=== PATIENT | female | born 1960 | race Two or more races ===

== ENCOUNTER 2025-01-25 12:06 | Observation (INO) | payer OTHER, SELFPAY ==
--- NOTE | 2025-01-25 12:29 | XR_ITS ---
Examination: CT abdomen with intravenous contrast CT pelvis with intravenous contrast 2-D coronal reconstructions 2-D sagittal reconstructions Date and time of exam:January 25, 2025 1632 hours INDICATIONS: Epigastric pain beginning 10 days ago CTDI: vol (mGy) 9.08 DLP: (mGycm) 516 Technique: Multiple axial sections of the abdomen and pelvis have been obtained. 64 slice high-resolution scanner used. 3 mm axial sections have been obtained, post intravenous injection of 60 cc [id number]-370 2-D sagittal, coronal reconstructions obtained. Low dose protocols were performed. One or more of the following dose reduction techniques were used; automated exposure control, adjustment of the mA and/or KV according to patient size, use of iterative reconstruction technique. Findings: No focal liver or splenic lesions No gallstones No pancreatic or adrenal mass No renal or ureteral calculi, no hydronephrosis Aorta normal size No bowel obstruction Normal appendix No diverticulitis Atrophic uterus No adnexal mass Moderate stool in the rectum Intact urinary bladder. Moderate osteopenia IMPRESSION: Please see the gallbladder sonogram report today No extrahepatic biliary tract dilatation No renal or ureteral calculi, no hydronephrosis Normal appendix No bowel obstruction or diverticulitis
--- NOTE | 2025-01-25 12:29 | EKG_ITS ---
[facility] Test Date: 2025-01-25 Pat Name: PERLA CHRISTIE Department: Room: - Gender: Female Global Account Director: : 1960 Requested By: Keisha Mcmahon Order Number: [id number] Reading MD: Keisha Mcmahon Measurements Intervals [place] Rate: 70 P: 64 RI: 184 QRS: 35 QRSD: 90 T: 40 QT: 377 QTc: 409 Interpretive Statements SINUS RHYTHM No previous ECG available for comparison /store/S0/[id number]/ecg/[id number].pdf
--- NOTE | 2025-01-25 12:29 | XR_ITS ---
Examination: Abdomen sonogram, Limited Date and time of exam: January 25, 2025 at 1237 hours INDICATIONS: Epigastric pain beginning 3 days ago Technique: Real-time mcdowell scale transabdominal sonographic images of the upper abdomen obtained. Findings: Cholelithiasis, negative for cholecystitis Common bile duct 0.5 cm Pancreatic head 3.0 cm Liver 15 cm fatty infiltration Normal hepatopedal portal venous flow Patent IVC IMPRESSION: Cholelithiasis, negative for cholecystitis Fatty liver
--- NOTE | 2025-01-25 12:31 | EDNOTE_ITS ---
<Statement entered by Adela Schultz MD - 01/26/25 17:32> As co-signing physician, I was present and available for consult prn. I concur with the plan and care as documented by the midlevel provider. ED Abdominal Pain RME/HPI General Chief Complaint: Abdominal Pain Stated complaint: ABD PAIN X 1 WK; SEEN AT [facility] TWICE Time seen by provider: 01/25/25 12:20 Arrival date/time: 01/25/25 12:06 RME / HPI RME / HPI narrative: 64-year-old female patient with significant history of hypertension hypercholesterolemia hypothyroidism, was sent to us by her GI specialist, Dr. Carter, for evaluation regarding abdominal pain. Patient is having abdominal pain, for the last 10 days, initially noted on the epigastric area now radiating to the left lower quadrant. Associated with nausea. Patient denies any fever v omiting or other complaints. Last bowel movement today. Patient was seen in [facility] emergency room 3 times already, and was told that it was just gastritis. Patient denies any fever denies any other complaints. No medications taken prior to arrival. Related Data Allergies Allergy/AdvReac Type Severity Reaction Status Date / Time No Known Allergies Allergy Verified 01/25/25 12:09 Review of Systems Review of Systems Narrative Review of Systems: Review of system reviewed and within normal limits except mentioned in HPI ED Exam Narrative Physical exam: VITAL SIGNS: Reviewed. GENERAL APPEARANCE: Alert and interactive, follows commands, no acute distress, HEAD AND FACE: Non-traumatic. ENT: PERRL, pink conjunctivitis, eyelid no trauma, Mucous membrane moist. NECK: Supple, nontender, no nuchal rigidity. CHEST: No tenderness, no crepitus, no paradoxical movement, no retractions. LUNGS: Clear, well ventilated, symmetric, no rales, no wheezing, no ronchi, no stridor, good breath sounds bilaterally. HEART: Regular rate, regular rhythm, no murmur, no gallops. ABDOMEN: Soft, positive bowel sounds, nondistended, no guarding, left lower quadrant tenderness, no rebound, no masses, RECTAL: Deferred. GENITAL: Deferred. NEUROLOGICAL: Gross motor function intact sensory function intact, Appropriate for age. MUSCULOSKELETAL: low back nontender, full range of motion. EXTREMITIES: Nontender, full range of motion. SKIN: Color pink, dry, no rash, no lacerations, no abrasions, no contusions. LYMPHATICS: Deferred. Course Quality Measures none Orders Category Date Time Status COVID-19 Screening Questionnaire NOW Care 01/25/25 17:[address] Screening NOW Care 01/25/25 12:30 Active Decision to Admit X1 Care 01/25/25 17:56 Active EKG (ED ONLY) *Do not use* NOW Care 01/25/25 12:29 Completed Consult to Gastroenterology Stat Cons 01/25/25 17:[address] abdomen pelvis w con Stat Exams 01/25/25 12:29 Completed EKG (ED Only) Stat Exams 01/25/25 12:29 Draft US gall bladder Stat Exams 01/25/25 12:29 Completed Bilirubin,Direct Stat Lab 01/25/25 12:52 Completed CBC Stat Lab 01/25/25 12:52 Completed Comprehensive Metabolic Panel Stat Lab 01/25/25 12:52 Completed Lipase Stat Lab 01/25/25 12:52 Completed Partial Thromboplastin Time Stat Lab 01/25/25 12:52 Completed Prothrombin Time with INR Stat Lab 01/25/25 12:52 Completed UA, C/S IF [Urinalysis, C/S if Indicated] Stat Lab 01/25/25 12:30 Ordered Vital Signs Vital signs: Vital Signs Temperature 98.5 F 01/25/25 12:59 Pulse Rate 70 01/25/25 12:59 Respiratory Rate 18 01/25/25 12:59 Blood Pressure 119/79 01/25/25 12:59 Pulse Oximetry (%) 99 01/25/25 12:59 Oxygen Delivery Method Room Air 01/25/25 12:59 Abdominal Pain MDM MDM Narrative MDM Narrative:: 64-year-old female patient with significant history of hypertension hypercholesterolemia hypothyroidism, was sent to us by her GI specialist, Dr. Carter, for evaluation regarding abdominal pain. Patient is having abdominal pain, for the last 10 days, initially noted on the epigastric area now radiating to the left lower quadrant. Associated with nausea. Patient denies any fever vomiting or other complaints. Last bowel movement today. Patient was seen in [facility] emergency room 3 times already, and was told that it was just gastritis. Patient denies any fever denies any other complaints. No medica tions taken prior to arrival. Patient's workup today all came back unremarkable except for cholelithiasis seen on ultrasound. CT scan of the abdomen and pelvis with no acute pathology. Results discussed with the family and patient. EKG showed normal sinus rhythm, ventricular rate of 70 bpm, no ST segment elevation or depression noted. I spoke with patient's GI specialist, who advised me to keep the patient for further evaluation including endoscopy and colonoscopy in the morning. Patient data External records reviewed:: None Clinical information provided by:: patient Social determinants that could affect healthcare access:: none Patient has the following chronic illnesses:: Hypertension, hypothyroidism How is presenting disease/condition affected by chronic disease/condition?: uneffected by Evaluation data The following diagnostics were reviewed and interpreted by me:: lab results, radiology exam(s) and EKG tracing(s) Lab and/or radiology exams considered but not ordered:: None Interpretation Summary: See results in MDM Medications / Prescriptions Medications or Prescriptions considered but not ordered:: None Medication administrations:: None Consultations Consultation(s) initiated? (list below): No Diagnosis Differential diagnosis abdominal pain: abdominal pain and pancreatitis Most likely diagnosis given after review of the tests above:: Intractable abdominal pain, cholelithiasis Admission Indicated Admission indicated?: not indicated Admission Request Was there a request for admission?: Yes Admission Attestation Admission request attestation: Discussed case with [Dr. Jj] from Hospitalist service regarding admission. Discussed patients ED course, exam findings, labs, and radiology results. The Hospitalist [agrees to accept the patient for admission. Disposition Plan Disposition Plan: Admit Discharge Plan Plan Patient Disposition: Admit Acute Care w/in Hospital Prescriptions/Referrals Referrals: Nicolsá Diaz MD [Primary Care Provider] - In 1 week Problem List Clinical Impression: Intractable abdominal pain, Cholelithiasis Patient/Caregiver Discharge Instructions Print Language: Portuguese Stand Alone Forms: [facility] Award Info., Patient Portal Info Letter
[2025-01-25 12:59] VITALS: BP 119/79; PULSE 70; RESP 18; TEMP 36.9; O2SAT 99
[2025-01-25 13:04] LABS: Basophils % (Auto) 1 % (0-2.5); Eosinophils # (Auto) 0.4 Thou/mm3 (0.0-0.5); Eosinophils % (Auto) 5 % (0-10); Hemoglobin 10.9 g/dL (12.0-16.0); Immature Granulocytes % (Auto) 0 % (0-0); Immature Granulocytes Auto 0.02 Thou/mm3 (0.00-0.00); Lymphocytes # (Auto) 2.7 Thou/mm3 (1.0-4.8); Lymphocytes % (Auto) 33 % (10-50); Mean Corpuscular HGB Conc 35.2 g/dl (31.0-37.0); Mean Corpuscular Hemoglobin 29.1 pg (25.0-35.0); Mean Corpuscular Volume 83 fL (80-100); Monocytes # (Auto) 0.7 Thou/mm3 (0.0-0.8); Monocytes % (Auto) 8 % (0-12); Neutrophils # (Auto) 4.4 Thou/mm3 (1.8-7.7); Neutrophils % (Auto) 54 % (37-80); Nucleated Red Blood Cell % 0 /100 WBC (0); Platelet Count 447 Thou/mm3 (140-440); RDW Standard Deviation 39.8 fL (36.4-46.3); Red Blood Count 3.74 Miln/mm3 (4.00-5.20); White Blood Count 8.2 Thou/mm3 (3.6-11.0)
[2025-01-25 13:20] LABS: Partial Thromboplastin Time 24.8 Seconds (22.0-36.0); Prothrombin Time 10.5 Seconds (9.0-12.2)
[2025-01-25 14:11] LABS: Alanine Aminotransferase 59 U/L (10-49); Albumin, Serum 4.2 gm/dL (3.4-4.8); Albumin/Globulin Ratio 1.5 (1.2-2.2); Alkaline Phosphatase 112 U/L (46-116); Anion Gap 9 (7-16); Aspartate Amino Transferase 29 U/L (0-34); BUN/Creatinine Ratio 14 Ratio (12-20); Bilirubin,Direct 0.2 mg/dL (0.0-0.3); Bilirubin,Total 0.5 mg/dL (0.3-1.2); Blood Urea Nitrogen 10 mg/dL (9-23); Calcium 8.9 mg/dL (8.3-10.6); Calcium (Corrected) 8.9 mg/dL (8.5-10.1); Carbon Dioxide 25.3 mMol/L (20.0-31.0); Chloride 101 mMol/L (98-107); Creatinine (Component) 0.7 mg/dL (0.6-1.3); Globulin 2.8 gm/dL (2.3-3.5); Glucose 114 mg/dL (74-106); Lipase 35 U/L (12-53); Osmolality,Calculated 270 (275-295); Potassium 4.1 mMol/L (3.4-5.1); Sodium 135 mMol/L (136-145); eGFR > 60 See Note
[2025-01-25 18:27] LABS: Collection Type, Urine Clean Catch
--- NOTE | 2025-01-25 18:36 | PD.RESHP ---
Documentation for date of: 01/25/25 [facility] History of Present Illness Chief complaint: Epigastric abdominal pain x 10 days History of present illness: Patient is a 64-year-old Apple-speaking female with past medical history of hypertension and hypothyroidism who presented to the ED on 01/25/[address] Carter for an evaluation of recurrent epigastric abdominal pain starting about 10 days ago. Patient is accompanied by who assists with history and interpretation. The pain is described as sudden onset, constant, diffuse, and without known triggers. It is associated with nausea, vomiting, and anorexia. Pain is worse upon eating. Denies difficulty swallowing. Denies any fevers, chills, sweats, or diarrhea. She has never had this pain before previously. She has noted history of GERD symptoms but usually this self-resolves and she does not take medication for it. Diet consists of Syrian food which is spicy at times. Patient has been to [facility] ED 3 times for this pain since onset. Each time the work-up was negative and patient was treated with pain medications and anti-emetics with improvement of the pain and sent home. However, since the pain recurred, her kept bringing her back to the ED, last visit 2 days ago after which the pain resolved. Today, the patient reports no episodes of abdominal pain. However, due to the recurrent visits Dr. Carter recommended inpatient evaluation and admission. ED Course: -Initial vitals were hemodynamically stable. -Labs significant for normocytic anemia with Hgb 10.9, mild iron deficiency at 42, mildly elevated ALT 59, normal direct and total bilirubin, normal lipase, UA negative. -Gallbladder US showed cholelithiasis, negative for cholecystitis, common bile duct 0.5 cm, and fatty liver -CT abdomen/pelvis with contrast was negative for abnormal findings -Patient was admitted for observation for recurrent abdominal pain, cholelithiasis likely gallstone attacks, with Dr. Carter to follow, plan is for EGD to investigate for possible peptic ulcer disease and possible surgical consult following Review of Systems Review of systems otherwise negative except what is mentioned above. Past Medical History Past Medical History Comments PMH COMMENT: Past Medical History: Hypertension, hypothyroidism Family History: No known family history of GI disorders Surgical History: No prior surgery Social History: Denies history of smoking, denies current alcohol use, denies recreational drug use Current Medications: Amlodipine 10 mg qday, levothyroxine 50 mcg qday, valsartan-hydrochlorothiazide 160-25 mg qday (Source: [employer]) Allergies: No known drug allergies Exam Vital Signs Temp Pulse Resp BP Pulse Ox O2 Del Method 98.5 F 70 18 119/79 99 Room Air 01/25/25 12:59 01/25/25 12:59 01/25/25 12:59 01/25/25 12:59 01/25/25 12:59 01/25/25 12:59 Narrative Exam Physical Exam General: Awake and in no acute distress. Conversational and non-toxic appearing. HEENT: Normocephalic, atraumatic, mucous membranes moist. Heart: Regular rate and rhythm, no murmurs. Lungs: Clear to auscultation with no wheezing or crackles. Abdomen: Soft, nondistended, nontender, positive bowel sounds. ?No guarding or rebound tenderness. Neurologic: Alert and oriented x3, no gross neurological deficit, and patient able to move all 4 extremities. Extremities: No edema. Skin: No rash or ecchymoses. Results: Labs 01/26/25 05:06 01/26/25 05:06 Labs: Short CBC 01/25/25 Range/Units 12:52 WBC 8.2 (3.6-11.0) Thou/mm3 Hgb 10.9 L (12.0-16.0) g/dL Hct 31.0 L (36.0-46.0) % Plt Count 447 H (140-440) Thou/mm3 BMP 01/25/25 12:52 Sodium 135 L Potassium 4.1 Chloride 101 Carbon Dioxide 25.3 BUN 10 Creatinine 0.7 Glucose 114 H Calcium 8.9 Liver Function 01/25/25 Range/Units 12:52 Total Bilirubin 0.5 (0.3-1.2) mg/dL Direct Bilirubin 0.2 (0.0-0.3) mg/dL AST 29 (0-34) U/L ALT 59 H (10-49) U/L Alkaline Phosphatase 112 (46-116) U/L Albumin 4.2 (3.4-4.8) gm/dL Quality Measures Quality Measures none Advance care planning discussed with:: patient and spouse Medications Home Medications and Allergies Home Medications ?Medication ?Instructions ?Recorded ?Confirmed ?Type amlodipine 10 mg tablet 10 mg PO QDAY 01/25/25 01/25/25 History levothyroxine 50 mcg tablet 50 mcg PO QDAY 01/25/25 01/25/25 History valsartan 160 1 tab PO QDAY 01/25/25 01/25/25 History mg-hydrochlorothiazide 25 mg tablet Allergies Allergy/AdvReac Type Severity Reaction Status Date / Time No Known Allergies Allergy Verified 01/25/25 12:09 Visit Medications Acetaminophen (Acetaminophen 325 Mg Tablet) 650 mg PO Q6H PRN PRN Reason: Fever >100.4 or Pain Stop: 02/24/25 18:30 Hydrocodone Bitart/Acetaminophen (Hydrocodone/Apap 5/325 Tablet) 1 tab PO Q8HR PRN PRN Reason: PAIN SCALE 7-10 (Severe Stop: 01/30/25 18:34 Enoxaparin Sodium (Enoxaparin Sod Inj 40 Mg/0.4 Ml Syringe) 40 mg SC QDAY ANIL Stop: 02/09/25 08:59 Ondansetron HCl (Ondansetron Odt 4 Mg Tabrap) 4 mg PO Q8HR PRN; Protocol PRN Reason: NAUSEA OR VOMITING Stop: 02/24/25 18:30 Assessment & Plan Plan 64-year-old Apple-speaking female with past medical history of hypertension and hypothyroidism who presented to the ED on 01/25/[address] Carter for an evaluation of recurrent epigastric abdominal pain starting 10 days ago, referred to the ED by Dr. Carter. Patient was admitted for observation and further evaluation. #Recurrent severe abdominal pain #Cholelithiasis without acute cholecystitis Patient presents with recurrent episodes of epigastric abdominal pain prompting repeated ED visits. Gallbladder US showed cholelithiasis, negative for cholecystitis, common bile duct 0.5 cm, and fatty liver. Clinical history is likely consistent with gallstone attacks without acute cholecystitis. Other differentials include GERD, peptic ulcer disease, gastric outlet obstruction, esophageal ulcers or strictures. Discussed with Dr. Carter, patient is to be admitted for further GI workup to first investigate for possible peptic ulcer disease and possible surgical consideration following. -GI following -EGD scheduled for tomorrow -Clear liquid diet -NPO after midnight -May take PO meds with sips of water -Pantoprazole 40 mg daily -Acetaminophen as needed for fever or pain -Zofran as needed for nausea #Normocytic anemia Labs showed Hgb 10.9, Hct 31.0, MCV 83, Iron 42, TIBC 340, Iron sat 12%, Unsat binding 298. Mild iron deficiency. Denies blood in stool or vomit. No clinical signs of active bleeding. -Ferritin level -Vitamin B12 pending -Folate pending #History of hypothyroidism -Continue home levothyroxine 50 mcg daily -Check AM TSH #History of hypertension -Continue home amlodipine 10 mg daily -Continue home valsartan-hydrochlorothiazide 160-25 mg daily #Mild ALT elevation Right upper quadrant US revealed fatty liver. Possibly secondary to non-alcoholic fatty liver disease. -Monitor CMP #Constipation -Senna daily DVT prophylaxis: Lovenox 40 mg subQ GI prophylaxis: Pantoprazole 40 mg PO daily Diet: Clear liquid, NPO after midnight [place]: None Lines: Peripheral IV Antibiotics: Not indicated CODE STATUS: FULL Reason for hospitalization: GI workup for recurrent abdominal pain, cholelithiasis, observation for gallstone attacks Patient plan of care was discussed with the attending physician, Dr. Garcia. Shawna Jj, PGY-2 Attending Provider Attestation/Addendum I attest that I was physically present for the evaluation, physical examination, lab and imaging review of the patient with the residents. I discussed the case with the residents and agree with the findings and plans of care as documented above. Patient is a 64 years old female with past medical history of hypertension and hypothyroidism who presented to the ED after having recurrent severe abdominal pain that started 10 days ago. Today is her fourth ED visit in the last 10 days for abdominal pain. Every time she visits the ED, she receives analgesics which relieves her pain but the pain comes back again prompting her visit to the ED. She denied nausea, vomiting, fever or diarrhea. In the ED, her vital signs are stable. Lab results show hemoglobin of 10.9, iron level 42 and ALT 59. Rest of the lab results are within normal limits. Gallbladder ultrasound showed cholelithiasis, negative for cholecystitis and fatty liver. Discussed with gastroenterology, given patient's recurrent severe abdominal pain, is concerned about atypical presentation from GI pathology, recommended inpatient admission for further evaluation and management. We will admit the patient for management of recurrent severe abdominal pain, cholelithiasis and concern for GI pathology. Started patient on clear liquid diet, we will keep her n.p.o. after midnight for EGD tomorrow. We will also start her on pantoprazole, analgesics and antiemetics as needed. Patient denied any signs and symptoms of active bleeding. We will obtain ferritin, vitamin B12 and folate level to evaluate for her normocytic anemia. We will continue her home medication for hypothyroidism and hypertension. Chastity Garcia MD
[2025-01-25 18:47] LABS: Bilirubin,Urine Negative (Negative); Blood,Urine Negative (Negative); Clarity,Urine Clear (Clear/Hazy); Color,Urine Colorless (Lt Yel-Yel); Culture Indicated,Urine Not Indicated; Glucose, Urine Negative (Negative); Ketones,Urine Negative (Negative); Leukocyte Esterase,Urine Negative (Negative); Nitrite,Urine Negative (Negative); PH,Urine 6.5 (5.0-7.0); Protein,Urine Negative (Neg - Trace); RBC,Urine 2 /hpf (0-3); Specific Gravity,Urine 1.043 (1.001-1.035); Squamous Epithelial Cell,Urine < 1 /hpf (0-5); Urobilinogen,Urine Negative mg/dL (0.0-1.0); WBC,Urine 1 /hpf (0-5)
--- NOTE | 2025-01-25 19:15 | PC.NURSE ---
Pt was moved from RME 4 to room 6. Pt was advised to put hospital gown on and get hooked up to monitors. Pt did not want to put hospital gown on because she is cold. Pt was not hooked up to monitor at this time because she needed to use the bathroom.
--- NOTE | 2025-01-25 21:22 | ESCONSULT_ITS ---
HPI Data of Consult Requesting Physician: Chastity Garcia MD Primary Care Provider: Nicolás Diaz MD Consult Narrative Reason for consult: Pain abdomen nausea, change of bowel habit History of present illness: 64 years of female was sent to the emergency room by me for symptoms of abdominal pain starting in the epigastric area going on in the right upper quadrant and going down the left paracolic gutter accompanied by nausea Pain is so severe it leads to postprandial abdominal bloating and nausea She has been to the emergency room at least 3 times at [facility] where according to her nothing was found Workup in the emergency room over here on a gallbladder sound shows cholelithiasis CT scan of the abdomen pelvis showed a 5 mm common bile duct and stool impaction in the left colon Because of the patient's symptoms and multiple visits to the ER I recommended admission for further workup and evaluation Surprisingly she was found to be anemic with a hemoglobin 10.9 hematocrit 31.0 and a WBC count of 8.2 and a platelet count of 447,000 INR was 1.0 Abnormal LFTs with a total bilirubin 0.2 AST ALT at 29 and 59 alk phos of 112 Patient does not drink any alcohol cc:: cc: Chastity Garcia MD Review of Systems Review of Systems Systems Reviewed: All systems reviewed, normal except as documented Past Medical History Surgical History OTHER SURGICAL HX: Essential hypertension Hyperlipidemia Hypothyroidism Chronic cough Meds Home Medications and Allergies Allergies Allergy/AdvReac Type Severity Reaction Status Date / Time No Known Allergies Allergy Verified 01/25/25 12:09 Exam Vital Signs Temp Pulse Resp BP Pulse Ox O2 Del Method 98.5 F 70 18 119/79 99 Room Air 01/25/25 12:59 01/25/25 12:59 01/25/25 12:59 01/25/25 12:59 01/25/25 12:59 01/25/25 12:59 Constitutional Comments: Alert oriented Routine Respiratory Exam Comments: Normal to auscultation Routine Abdominal Exam Comments: Midepigastric tenderness right upper quadrant tenderness and lower abdominal tenderness and no rebound Positive bowel sounds Results Labs 01/25/25 12:52 01/25/25 12:52 Labs: Short CBC 01/25/25 Range/Units 12:52 WBC 8.2 (3.6-11.0) Thou/mm3 Hgb 10.9 L (12.0-16.0) g/dL Hct 31.0 L (36.0-46.0) % Plt Count 447 H (140-440) Thou/mm3 BMP 01/25/25 12:52 Sodium 135 L Potassium 4.1 Chloride 101 Carbon Dioxide 25.3 BUN 10 Creatinine 0.7 Glucose 114 H Calcium 8.9 Liver Function 01/25/25 Range/Units 12:52 Total Bilirubin 0.5 (0.3-1.2) mg/dL Direct Bilirubin 0.2 (0.0-0.3) mg/dL AST 29 (0-34) U/L ALT 59 H (10-49) U/L Alkaline Phosphatase 112 (46-116) U/L Albumin 4.2 (3.4-4.8) gm/dL Urine 01/25/25 Range/Units 17:58 Urine Color Colorless A (Lt Yel-Yel) Urine Clarity Clear (Clear/Hazy) Urine pH 6.5 (5.0-7.0) Ur Specific [place] 1.043 H (1.001-1.035) Urine Protein Negative (Neg - Trace) Urine Glucose (UA) Negative (Negative) Assessment and Plan Additional Assessment & Plan Additional Plan: # Cholelithiasis history consistent with recurrent bouts of cholecystitis on a chronic basis # Transaminitis with mildly dilated common bile duct at 5 mm on ultrasound imaging report possibility of a CBD sludge or stone # Postprandial abdominal pain and bloating particular in the epigastric region other possibilities include peptic ulcer disease gastric outlet partial obstruction # No abdominal pain particular left mid quadrant left lower quadrant pain most likely due to stool impaction But patient being anemic with a hemoglobin 10.9 and hematocrit of 31.0 Plan Will arrange surgical consultation after further GI workup Fiberoptic esophagogastroduodenoscopy scheduled for tomorrow under intravenous moderate sedation consent obtained Clear liquid diet till midnight then n.p.o. Will also consider colonoscopy for further evaluation consent obtained Other medical problems include Essential hypertension Hyperlipidemia Hypothyroidism Chronic cough of uncertain etiology will have to look at the home medications before ordering any further workup Thank you once again for the opportunity to participate in care of this patient
[2025-01-25 21:33] VITALS: BP 169/80; PULSE 83; RESP 17; TEMP 37.1; O2SAT 97
[2025-01-25 22:32] VITALS: BMI 27.8
[2025-01-25 22:35] LABS: Iron 42 mcg/dL (50-170); Percent Iron Saturation 12 % (20-55); Total Iron Binding Capacity 340 mcg/dL (250-425); Unsaturated Iron Binding 298 (225-295)
[2025-01-25 22:49] LABS: Amylase 93 U/L (30-118); Lipase 31 U/L (12-53)
[2025-01-25 23:23] VITALS: BMI 27.6
[2025-01-25] MEDS: NA SU/NAHCO3/KC/PEG (Golytely) 4,000 ML BTL 4000 ML PO (23:58)
[2025-01-26] VITALS (22 sets, daily range): BP systolic 93–168; BP diastolic 61–91; PULSE 76–105; RESP 11–99; TEMP 36.1–36.9; O2SAT 92–100
[2025-01-26] MEDS: LEVOTHYROXINE SODIUM 25 MCG TABLET 50 MCG PO (05:33)
[2025-01-26 05:52] LABS: Basophils # (Auto) 0.1 Thou/mm3 (0.0-0.2); Basophils % (Auto) 1 % (0-2.5); Eosinophils # (Auto) 0.3 Thou/mm3 (0.0-0.5); Eosinophils % (Auto) 3 % (0-10); Hematocrit 32.6 % (36.0-46.0); Hemoglobin 11.3 g/dL (12.0-16.0); Immature Granulocytes % (Auto) 0 % (0-0); Immature Granulocytes Auto 0.03 Thou/mm3 (0.00-0.00); Lymphocytes # (Auto) 1.2 Thou/mm3 (1.0-4.8); Lymphocytes % (Auto) 12 % (10-50); Mean Corpuscular HGB Conc 34.7 g/dl (31.0-37.0); Mean Corpuscular Hemoglobin 29.4 pg (25.0-35.0); Mean Corpuscular Volume 85 fL (80-100); Monocytes # (Auto) 0.7 Thou/mm3 (0.0-0.8); Monocytes % (Auto) 7 % (0-12); Neutrophils # (Auto) 7.4 Thou/mm3 (1.8-7.7); Neutrophils % (Auto) 77 % (37-80); Nucleated Red Blood Cell % 0 /100 WBC (0); Platelet Count 407 Thou/mm3 (140-440); RDW Standard Deviation 39.6 fL (36.4-46.3); Red Blood Count 3.85 Miln/mm3 (4.00-5.20); White Blood Count 9.7 Thou/mm3 (3.6-11.0)
[2025-01-26 06:13] LABS: Ferritin 98 ng/mL (7.3-270.7)
[2025-01-26 06:17] LABS: Alanine Aminotransferase 61 U/L (10-49); Albumin, Serum 4.4 gm/dL (3.4-4.8); Albumin/Globulin Ratio 1.6 (1.2-2.2); Alkaline Phosphatase 102 U/L (46-116); Anion Gap 10 (7-16); Aspartate Amino Transferase 34 U/L (0-34); BUN/Creatinine Ratio 10 Ratio (12-20); Bilirubin,Total 0.6 mg/dL (0.3-1.2); Blood Urea Nitrogen 7 mg/dL (9-23); Calcium 9.6 mg/dL (8.3-10.6); Calcium (Corrected) 9.6 mg/dL (8.5-10.1); Carbon Dioxide 25.9 mMol/L (20.0-31.0); Chloride 103 mMol/L (98-107); Creatinine (Component) 0.7 mg/dL (0.6-1.3); Estimated Creatinine Clearance 69.8 mL/min (>60); Globulin 2.7 gm/dL (2.3-3.5); Glucose 109 mg/dL (74-106); Osmolality,Calculated 276 (275-295); Potassium 3.9 mMol/L (3.4-5.1); Sodium 139 mMol/L (136-145); Thyroid Stimulating Hormone 2.54 uIU/mL (0.55-4.78); Total Protein 7.1 gm/dL (5.7-8.2); eGFR > 60 See Note
[2025-01-26] MEDS: PANTOPRAZOLE 40 MG TABLET PO (08:25)
--- NOTE | 2025-01-26 13:48 | ESPR_ITS ---
Documentation for date of: 01/26/25 Subjective Subjective Interval history: Patient was seen and examined in [facility] today. There were no major overnight events the patient had no complaints this morning. Patient's pain has been under control and she has been tolerating the GoLytely well. She is cleared for colonoscopy as she will be receiving both endoscopy and colonoscopy today with Dr. Carter. Will follow-up on results when further recommendations as per GI Exam Vital Signs Temp Pulse Resp BP Pulse Ox O2 Del Method 96.9 F 79 16 123/75 98 Room Air 01/26/25 12:00 01/26/25 12:00 01/26/25 12:00 01/26/25 12:00 01/26/25 12:00 01/26/25 12:00 Narrative Exam Constitutional: Well nourished and in no acute distress CVS: RRR, S1 and S2 present, no murmurs, rubs or gallops . RESP: CTAB, no SOB, no rales, rhonchi or wheezing. No respiratory Distress GI: Normal BS, Nontender/Nondistended. MSK: Full range of motion, No trauma or deformities or masses. Skin: Warm to touch, Dry. No rashes or lesions. 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 Sensation grossly intact. Psych: (AAO) x3 . Appropriate mood and affect. Objective Labs 01/26/25 05:06 01/26/25 05:06 Labs: Laboratory Results - last 24 hr 01/25/25 01/25/25 01/25/25 12:52 17:58 22:20 WBC RBC Hgb Hct MCV MCH MCHC RDW Std Deviation Plt Count Neut % (Auto) Lymph % (Auto) [place] % (Auto) Eos % (Auto) Baso % (Auto) Neut # (Auto) Lymph # (Auto) [place] # (Auto) Eos # (Auto) Baso # (Auto) Immature Gran # (Auto) Absolute Nucleated RBC Immature Gran % Nucleated RBC % Sodium 135 L Potassium 4.1 Chloride 101 Carbon Dioxide 25.3 Anion Gap 9 BUN 10 Creatinine 0.7 Estim Creat Clear Calc Not Performed. eGFR > 60 BUN/Creatinine Ratio 14 Glucose 114 H Calculated Osmolality 270 L Calcium 8.9 Corrected Calcium 8.9 Iron 42 L TIBC 340 Iron Saturation 12 L Unsat Iron Binding 298 H Ferritin Total Bilirubin 0.5 Direct Bilirubin 0.2 AST 29 ALT 59 H Alkaline Phosphatase 112 Total Protein 7.0 Albumin 4.2 Globulin 2.8 Albumin/Globulin Ratio 1.5 Amylase 93 Lipase 35 31 TSH Ur Collection Type Clean Catch Urine Color Colorless A Urine Clarity Clear Urine pH 6.5 Ur Specific [place] 1.043 H Urine Protein Negative Urine Glucose (UA) Negative Urine Ketones Negative Urine Blood Negative Urine Nitrite Negative Urine Bilirubin Negative Urine Urobilinogen (Auto) Negative Ur Leukocyte Esterase Negative Urine RBC 2 Urine WBC 1 Ur Squamous Epith Cells < 1 Urine Bacteria None Ur Culture Indicated? Not Indicated 01/26/25 05:06 WBC 9.7 RBC 3.85 L Hgb 11.3 L Hct 32.6 L MCV 85 MCH 29.4 MCHC 34.7 RDW Std Deviation 39.6 Plt Count 407 D Neut % (Auto) 77 Lymph % (Auto) 12 [place] % (Auto) 7 Eos % (Auto) 3 Baso % (Auto) 1 Neut # (Auto) 7.4 Lymph # (Auto) 1.2 [place] # (Auto) 0.7 Eos # (Auto) 0.3 Baso # (Auto) 0.1 Immature Gran # (Auto) 0.03 H Absolute Nucleated RBC 0.00 Immature Gran % 0 Nucleated RBC % 0 Sodium 139 Potassium 3.9 Chloride 103 Carbon Dioxide 25.9 Anion Gap 10 BUN 7 L Creatinine 0.7 Estim Creat Clear Calc 69.8 eGFR > 60 BUN/Creatinine Ratio 10 L Glucose 109 H Calculated Osmolality 276 Calcium 9.6 Corrected Calcium 9.6 Iron TIBC Iron Saturation Unsat Iron Binding Ferritin 98 Total Bilirubin 0.6 Direct Bilirubin AST 34 ALT 61 H Alkaline Phosphatase 102 Total Protein 7.1 Albumin 4.4 Globulin 2.7 Albumin/Globulin Ratio 1.6 Amylase Lipase TSH 2.54 Ur Collection Type Urine Color Urine Clarity Urine pH Ur Specific [place] Urine Protein Urine Glucose (UA) Urine Ketones Urine Blood Urine Nitrite Urine Bilirubin Urine Urobilinogen (Auto) Ur Leukocyte Esterase Urine RBC Urine WBC Ur Squamous Epith Cells Urine Bacteria Ur Culture Indicated? Quality Measures Quality Measures none Advance care planning discussed with:: patient Assessment & Plan Assessment Current Active Medications: Generic Name Dose Route Start Last Admin Trade Name Freq PRN Reason Stop Dose Admin Acetaminophen 650 mg 01/25/25 18:31 Acetaminophen 325 Mg Tablet PO 02/24/25 18:30 Q6H PRN Fever >100.4 or Pain 1-3 Hydrocodone Bitart/Acetaminophen 1 tab 01/25/25 18:35 Hydrocodone/Apap 5/325 Tablet PO 01/30/25 18:34 Q8HR PRN PAIN SCALE 7-10 (Severe Amlodipine Besylate 10 mg 01/26/25 09:00 01/26/25 08:14 Amlodipine Besylate 5 Mg Tablet PO 02/25/25 08:59 Not Given QDAY ANIL Enoxaparin Sodium 40 mg 01/26/25 09:00 01/26/25 08:00 Enoxaparin Sod Inj 40 Mg/0.4 Ml Syringe SC 02/09/25 08:59 Not Given QDAY ANIL Hydrochlorothiazide 25 mg 01/26/25 09:00 01/26/25 08:15 Hydrochlorothiazide 12.5 Mg Capsule PO 02/25/25 08:59 Not Given QDAY ANIL Levothyroxine Sodium 50 mcg 01/26/25 06:00 01/26/25 05:33 Levothyroxine Sodium 25 Mcg Tablet PO 02/25/25 05:59 50 mcg ACBR ANIL Administration Ondansetron HCl 4 mg 01/25/25 18:31 Ondansetron Odt 4 Mg Tabrap PO 02/24/25 18:30 Q8HR PRN NAUSEA OR VOMITING Protocol Pantoprazole Sodium 40 mg 01/26/25 09:00 01/26/25 08:25 Pantoprazole 40 Mg Tablet PO 02/25/25 08:59 40 mg QDAY ANIL Administration Pharmacy Consult 1 each 01/25/25 23:31 Pharmacy To Consult Pneumovacc XX 02/24/25 23:30 PRN PRN CONSULT Sennosides 1 tab 01/26/25 09:00 01/26/25 08:16 Senna Tablet PO 02/25/25 08:59 Not Given QDAY [facility] Protocol Valsartan 160 mg 01/26/25 09:00 01/26/25 08:15 Valsartan 80 Mg Tablet PO 02/25/25 08:59 Not Given QDAY ANIL Plan 64-year-old Apple-speaking female with past medical history of hypertension and hypothyroidism who presented to the ED on 01/25/2025 sent by RONDA Carter for an evaluation of recurrent epigastric abdominal pain starting 10 days ago, referred to the ED by Dr. Carter. Patient was admitted for observation and further evaluation. #Recurrent severe abdominal pain #Cholelithiasis without acute cholecystitis Patient presents with recurrent episodes of epigastric abdominal pain prompting repeated ED visits. Gallbladder US showed cholelithiasis, negative for cholecystitis, common bile duct 0.5 cm, and fatty liver. Clinical history is likely consistent with gallstone attacks without acute cholecystitis. Other differentials include GERD, peptic ulcer disease, gastric outlet obstruction, esophageal ulcers or strictures. Discussed with Dr. Carter, patient is to be admitted for further GI workup to first investigate for possible peptic ulcer disease and possible surgical consideration following. -GI following -EGD scheduled for tomorrow -Clear liquid diet -NPO after midnight -May take PO meds with sips of water -Pantoprazole 40 mg daily -Acetaminophen as needed for fever or pain -Zofran as needed for nausea - Patient to receive EGD and colonoscopy today - pending results #Normocytic anemia Labs showed Hgb 10.9, Hct 31.0, MCV 83, Iron 42, TIBC 340, Iron sat 12%, Unsat binding 298. Mild iron deficiency. Denies blood in stool or vomit. No clinical signs of active bleeding. -Ferritin level -Vitamin B12 pending -Folate pending #History of hypothyroidism -Continue home levothyroxine 50 mcg daily -Check AM TSH #History of hypertension -Continue home amlodipine 10 mg daily -Continue home valsartan-hydrochlorothiazide 160-25 mg daily #Mild ALT elevation Right upper quadrant US revealed fatty liver. Possibly secondary to non- alcoholic fatty liver disease. -Monitor CMP #Constipation -Senna daily DVT prophylaxis: Lovenox 40 mg subQ GI prophylaxis: Pantoprazole 40 mg PO daily Diet: Clear liquid, NPO after midnight [place]: None Lines: Peripheral IV Antibiotics: Not indicated CODE STATUS: FULL Reason for hospitalization: GI workup for recurrent abdominal pain, cholelithiasis, observation for gallstone attacks I discussed patient's care with attending physician, Dr Radha Ramirez PGY3 Attending Provider Attestation/Addendum I attest that I was physically present for the evaluation, physical examination, lab and imaging review of the patient with the residents. I discussed the case with the residents and agree with the findings and plans of care as documented above. At bedside today, patient states she is feeling well and does not have any new complaints. She currently does not have any abdominal pain. She is scheduled for EGD and colonoscopy with GI today. Chastity Garcia MD
--- NOTE | 2025-01-26 19:49 | PD.SURCONS ---
HPI Consult details Consult date: 01/26/25 Reason for consultation narrative: Patient was seen in consultation because of recurrent abdominal pain associated with cholelithiasis History of present illness: History of present illness revealed that the patient has been seen in the [facility] for 3 times in the emergency room with abdominal pain this pain was in the upper abdomen radiating to both sides. It was associated with nausea and vomiting. The pain was aggravated by eating. She was treated as an outpatient with a diagnostic workup consisting of ultrasound and chest x-ray and was discharged with the pain medication. With the patient continued to have pain and therefore was brought here and admitted through the emergency room. She was seen by Dr. Carter who is known to the family and she underwent upper and lower endoscopy and found no significant abnormality other than some gastritis. She was therefore consulted for possible cholecystectomy. Patient is possibly history consist of hypertension and hypothyroidism and anemia Past Medical History Past Medical History NEUROLOGIC: Negative Seizures CARDIAC: Positive Hypercholesterolemia (atorvastatin stopped per md) and Hypertension; Negative Cardiac Disorders or Congestive Heart Failure RESPIRATORY: Positive Respiratory Disorders (chronic cough); Negative Chronic Obstructive Pulmonary Disease (COPD) or Asthma GASTROINTESTINAL: Positive Gastroesophageal Reflux Disease; Negative Gastrointestinal Disorders GENITOURINARY: Negative Renal Disease ENT: Positive Cataracts (bilateral, with lens implant) ENDOCRINE: Positive Hypothyroidism; Negative Diabetes Mellitus Type 1 or Diabetes Mellitus Type 2 HEMATOLOGIC: Negative Sickle Cell Disease OTHER HISTORY: Negative Blood Transfusions or Anesthesia Reactions Surgical History OTHER SURGICAL HX: Essential hypertension Hyperlipidemia Hypothyroidism Chronic cough Social History SMOKING STATUS: Never smoker SECOND HAND EXPOSURE: No Past Medical History Comments PMH COMMENT: Past Medical History: Hypertension, hypothyroidism Family History: No known family history of GI disorders Surgical History: No prior surgery Social History: Denies history of smoking, denies current alcohol use, denies recreational drug use Current Medications: Amlodipine 10 mg qday, levothyroxine 50 mcg qday, valsartan-hydrochlorothiazide 160-25 mg qday (Source: Med rec) Allergies: No known drug allergies Meds Home Medications and Allergies Home Medications ?Medication ?Instructions ?Recorded ?Confirmed ?Type amlodipine 10 mg tablet 10 mg PO QDAY 01/25/25 01/25/25 History levothyroxine 50 mcg tablet 50 mcg PO QDAY 01/25/25 01/25/25 History valsartan 160 1 tab PO QDAY 01/25/25 01/25/25 History mg-hydrochlorothiazide 25 mg tablet Allergies Allergy/AdvReac Type Severity Reaction Status Date / Time No Known Allergies Allergy Verified 01/25/25 12:09 Exam Vital Signs Temp Pulse Resp BP Pulse Ox O2 Del Method O2 Flow Rate 97.4 F 79 18 123/74 95 Room Air 3 01/26/25 17:00 01/26/25 17:00 01/26/25 17:00 01/26/25 17:00 01/26/25 17:00 01/26/25 17:00 01/26/25 15:39 Narrative Exam Physical examination revealed thin built [place] female who speaks no Turkish. Constitutional Constitutional: mild distress Routine Abdominal Exam Comments: Abdomen showed some discomfort after palpation of the upper abdomen on both sides. Beckwith sign was negative Routine Rectal Exam Comments: Deferred Routine Extremities Exam Comments: Within normal limits Results Results: Laboratory Laboratory Narrative: Patient's laboratory is within normal limits Results: Imaging Imaging narrative: Ultrasound showed small gallstones without any evidence of cholecystitis Assessment & Plan Additional Assessment Additional comments: Impression: Symptomatic cholelithiasis with recurrent biliary colic Hypertension Hypothyroidism Anemia Gastritis seen on the EGD Plan Plan: I discussed with the patient and her in detail about the presenting symptoms and our diagnosis. It is possible that the patient has had recurrent abdominal pain due to gallstones. Dr. Carter who was evaluated the patient feels that her pain is not coming from upper GI tract or colon.. I explained to the patient's that laparoscopic cholecystectomy will perform and patient will have rare problem of having open cholecystectomy. The risks of the operation were discussed with them. They are agreeable.
[2025-01-26] MEDS: PANTOPRAZOLE INJ 40 MG VIAL IV (20:09)
[2025-01-27] VITALS (15 sets, daily range): BP systolic 107–141; BP diastolic 54–79; PULSE 67–99; RESP 13–97; TEMP 36.1–37.6; O2SAT 93–97
[2025-01-27 05:57] LABS: Basophils % (Auto) 1 % (0-2.5); Eosinophils # (Auto) 0.4 Thou/mm3 (0.0-0.5); Eosinophils % (Auto) 5 % (0-10); Hematocrit 29.7 % (36.0-46.0); Hemoglobin 10.5 g/dL (12.0-16.0); Immature Granulocytes % (Auto) 0 % (0-0); Immature Granulocytes Auto 0.03 Thou/mm3 (0.00-0.00); Lymphocytes # (Auto) 2.5 Thou/mm3 (1.0-4.8); Lymphocytes % (Auto) 33 % (10-50); Mean Corpuscular HGB Conc 35.4 g/dl (31.0-37.0); Mean Corpuscular Hemoglobin 29.4 pg (25.0-35.0); Mean Corpuscular Volume 83 fL (80-100); Monocytes # (Auto) 0.7 Thou/mm3 (0.0-0.8); Monocytes % (Auto) 10 % (0-12); Neutrophils # (Auto) 3.9 Thou/mm3 (1.8-7.7); Neutrophils % (Auto) 52 % (37-80); Nucleated Red Blood Cell % 0 /100 WBC (0); Platelet Count 434 Thou/mm3 (140-440); RDW Standard Deviation 39.8 fL (36.4-46.3); Red Blood Count 3.57 Miln/mm3 (4.00-5.20); White Blood Count 7.5 Thou/mm3 (3.6-11.0)
[2025-01-27 06:29] LABS: Alanine Aminotransferase 55 U/L (10-49); Albumin, Serum 3.9 gm/dL (3.4-4.8); Albumin/Globulin Ratio 1.6 (1.2-2.2); Alkaline Phosphatase 94 U/L (46-116); Anion Gap 9 (7-16); Aspartate Amino Transferase 32 U/L (0-34); BUN/Creatinine Ratio 14 Ratio (12-20); Bilirubin,Total 0.6 mg/dL (0.3-1.2); Blood Urea Nitrogen 11 mg/dL (9-23); Calcium 8.9 mg/dL (8.3-10.6); Carbon Dioxide 25.4 mMol/L (20.0-31.0); Chloride 103 mMol/L (98-107); Creatinine (Component) 0.8 mg/dL (0.6-1.3); Estimated Creatinine Clearance 61.1 mL/min (>60); Globulin 2.5 gm/dL (2.3-3.5); Glucose 90 mg/dL (74-106); Osmolality,Calculated 273 (275-295); Potassium 3.6 mMol/L (3.4-5.1); Sodium 137 mMol/L (136-145); Total Protein 6.4 gm/dL (5.7-8.2); eGFR > 60 See Note
[2025-01-27] MEDS: PANTOPRAZOLE INJ 40 MG VIAL IV ×2 (08:15→20:13)
--- NOTE | 2025-01-27 10:42 | PC.SS ---
Patient Ramiro Saleh is 64 Year old female admitted for Cholelithiasis and abdominal pain. SS contacted patient's Elva Saleh to verify demographic information, he reports he is surrogate decision maker [phone]. He reports patient lives at home with family. He reports patient is able to complete all ADL's independently and does not utilize any source of DME to assist with ambulation. Patient's PCP is Joe Monzno. Pharmacy of choice is [facility]. At time of discharge patient will return home. Family will provide transportation. Discharge plan: Home Next of Kin: , Elva Saleh
--- NOTE | 2025-01-27 11:03 | PD.SUROPNT ---
Date of Procedure 01/27/25 Pre Op Diagnosis Symptomatic cholelithiasis Post Op Diagnosis Same Procedure Laparoscopic cholecystectomy Findings Patient was found to have a noninflamed gallbladder with tiny stones at the neck of the gallbladder that are pigmented stones Procedure Description After endotracheal anesthesia was given the patient was placed in supine position and the abdomen was prepped with chloroprep solution and draped in a sterile manner. After time out was performed I injected a few cc of of half percent Marcaine with epinephrine below the umbilicus and I made an incision for about 3 cm in length. The fascia was cleaned and Veress needle was inserted to create a pneumoperitoneum up to 15 mmHg. Then introduced a 12 mm trocar and a 10 mm camera through the fascia and I inspected the intra-abdominal organs as well as the gallbladder and the liver. Another 5 mm trocar was inserted in the epigastric region under direct vision after injecting some local anesthesia. At this time the patient was kept in reverse Trendelenburg position with the left lateral tilt. The third 5 mm trocar was inserted over the mid axillary line under direct vision and a Cody and Macy grasper was used to hold the fundus of the gallbladder. The retraction was carried out by the communications assistant moving the fundus of the gallbladder towards the right shoulder of the patient to create enough traction. I placed a another 5 mm trocar in the midaxillary line just lateral to the rectus muscle under direct vision. I used a fenestrated grasper to retract the neck of the gallbladder laterally towards the patient's right hip. The Calot's triangle was exposed and I achieved the critical view of safety as follows: I dissected out the fatty tissue from the hepatocystic triangle and cleared this area. I also dissected inferior and posterior to the gallbladder to identify the cystic duct and the gallbladder wall. Then superiorly I dissected along the cystic plate up to lower one third third of the gallbladder to lift the gallbladder from the liver. At this time I confirmed that only 2 structures entering the gallbladder were cystic artery and the cystic duct. The common duct was seen distally but no dissection was carried out around the duct. I did not see any need for operative cholangiogram in this patient. The cystic duct was clipped doubly and then divided and cystic artery was similarly dealt with. Then the gallbladder was removed from the liver bed using Harmonic braydon to control the small blood vessels as the dissection proceeded. At this time there was a tear at the posterior portion of the gallbladder and then bile leaked out. This bile was aspirated and then irrigated out with saline solution to clean bile-stained areas. Then the gallbladder was from the liver bed completely and delivered through the umbilical port using an Endopouch. The liver bed was coagulated with cautery to obtain satisfactory hemostasis. I applied 1 Surgicel for hemostasis. The trocars were pulled out from the abdominal cavity and the fascia at the umbilical incision was closed with interrupted 0 Ethibond. Subcutaneous tissues was closed with 3-0 chromic and injected a few cc of half percent Marcaine with epinephrine and the skin was closed with interrupted 4-0 Monocryl subcuticular stitches at all the trocar sites. Dressing was applied with 2 x 2 and Tegaderm. Patient tolerated the procedure well and returned to recovery room in stable condition. Anesthesia GETA Pathology / specimen Other IVF Infused 1,000 Estimated Blood Loss 50 Condition Stable Disposition PACU Surgeon Radha Gutierrez MD Surgical Staff Operation Date: 01/27/25 14:45 Case Staff ROCK SPLITTER: Delvis Leblanc Jr, RN First Assistant: Rachelle Gomes
--- NOTE | 2025-01-27 11:11 | SUR.PHASEI ---
received pt and report from LOS Ace and ANTONIO Edmondson. Pt resting with eyes closed, arousable to voice. IV in place, no ss of infiltration or redness. dressing CDI, gauze x4 to abd. abd soft on palpation with tenderness. no distress noted.
--- NOTE | 2025-01-27 11:25 | SUR.PHASEI ---
pt c/o abd pain flacc scale 2/10. no orders for pain medication. Spoke to ANTONIO Leblanc, received orders for pain medication. will administer when pain med is avail. comfort measures provided to patient at this time.
[2025-01-27] MEDS: fentaNYL CIT INJ 50 mCg/ML AMP 2ML 25 MCG IV (11:43)
--- NOTE | 2025-01-27 11:48 | SUR.PHASEI ---
pt tolerating ice chips at this time, pt denies any nausea.
--- NOTE | 2025-01-27 11:52 | SUR.PHASEI ---
vss, dressings remain cdi to abd, iv remains intact, no s/s of infiltration noted. report given to LOS Mathis. Pt ready to transfer back to room
--- NOTE | 2025-01-27 12:13 | ESPR_ITS ---
Documentation for date of: 01/27/25 Subjective Subjective Interval history: 01/27/2025: No acute overnight events to report. Patient was kept n.p.o. for suspected lap cholecystectomy with Dr. Mathews which was indeed completed this morning. Patient seen and examined in hospital bed prior to the procedure reporting no concerning symptoms such as chest pain, shortness of breath, abdominal pain, dizziness or new headaches. As note, patient completed EGD and colonoscopy with Dr. Carter with noted gastritis and esophagitis status post biopsies which are pending pathology review. Patient's lab for scopic cholecystectomy was completed without any acute complications and the patient will be monitored overnight for diet tolerance. Expect discharge within the next 24 hours if she remains stable. Exam Vital Signs Temp Pulse Resp BP Pulse Ox O2 Del Method O2 Flow Rate 97.1 F 72 15 131/79 H 95 Room Air 3 01/27/25 11:51 01/27/25 11:51 01/27/25 11:51 01/27/25 11:51 01/27/25 11:51 01/27/25 08:00 01/26/25 15:39 Narrative Exam Physical Exam: Constitutional: Well nourished and in no acute distress CVS: RRR, S1 and S2 present, no murmurs, rubs or gallops . RESP: CTAB, no SOB, no rales, rhonchi or wheezing. No respiratory Distress GI: Normal BS, Nontender/Nondistended. MSK: Full range of motion, No trauma or deformities or masses. Skin: Warm to touch, Dry. No rashes or lesions. No hematomas Neuro: chief steward/stewardess II-XII grossly intact. Sensation grossly intact. Psych: (AAO) x3 . Appropriate mood and affect. Objective Labs 01/27/25 04:34 01/27/25 04:34 Labs: Laboratory Results - last 24 hr 01/27/25 04:34 WBC 7.5 RBC 3.57 L Hgb 10.5 L Hct 29.7 L MCV 83 MCH 29.4 MCHC 35.4 RDW Std Deviation 39.8 Plt Count 434 Neut % (Auto) 52 Lymph % (Auto) 33 [place] % (Auto) 10 Eos % (Auto) 5 Baso % (Auto) 1 Neut # (Auto) 3.9 Lymph # (Auto) 2.5 [place] # (Auto) 0.7 Eos # (Auto) 0.4 Baso # (Auto) 0.0 Immature Gran # (Auto) 0.03 H Absolute Nucleated RBC 0.00 Immature Gran % 0 Nucleated RBC % 0 Sodium 137 Potassium 3.6 Chloride 103 Carbon Dioxide 25.4 Anion Gap 9 BUN 11 Creatinine 0.8 Estim Creat Clear Calc 61.1 eGFR > 60 BUN/Creatinine Ratio 14 Glucose 90 Calculated Osmolality 273 L Calcium 8.9 Corrected Calcium 9.0 Total Bilirubin 0.6 AST 32 ALT 55 H Alkaline Phosphatase 94 Total Protein 6.4 Albumin 3.9 D Globulin 2.5 Albumin/Globulin Ratio 1.6 Quality Measures Quality Measures none Advance care planning discussed with:: patient and spouse Assessment & Plan Assessment Current Active Medications: Generic Name Dose Route Start Last Admin Trade Name Freq PRN Reason Stop Dose Admin Acetaminophen 650 mg 01/25/25 18:31 Acetaminophen 325 Mg Tablet PO 02/24/25 18:30 Q6H PRN Fever >100.4 or Pain 1-3 Hydrocodone Bitart/Acetaminophen 1 tab 01/25/25 18:35 Hydrocodone/Apap 5/325 Tablet PO 01/30/25 18:34 Q8HR PRN PAIN SCALE 7-10 (Severe Amlodipine Besylate 10 mg 01/26/25 09:00 01/27/25 08:20 Amlodipine Besylate 5 Mg Tablet PO 02/25/25 08:59 Not Given QDAY [facility] Enoxaparin Sodium 40 mg 01/26/25 09:00 01/27/25 08:21 Enoxaparin Sod Inj 40 Mg/0.4 Ml Syringe SC 02/09/25 08:59 Not Given QDAY [facility] Fentanyl Citrate 25 mcg 01/27/25 11:32 01/27/25 11:43 Fentanyl Cit Inj 50 Mcg/Ml Amp 2ml IV 01/27/25 13:33 25 mcg Q5M PRN Administration PAIN SCALE 1-3 (mild Hydrochlorothiazide 25 mg 01/26/25 09:00 01/27/25 08:21 Hydrochlorothiazide 12.5 Mg Capsule PO 02/25/25 08:59 Not Given QDAY [facility] Levothyroxine Sodium 50 mcg 01/26/25 06:00 01/27/25 05:06 Levothyroxine Sodium 25 Mcg Tablet PO 02/25/25 05:59 Not Given ACBR [facility] Ondansetron HCl 4 mg 01/25/25 18:31 Ondansetron Odt 4 Mg Tabrap PO 02/24/25 18:30 Q8HR PRN NAUSEA OR VOMITING Protocol Pantoprazole Sodium 40 mg 01/26/25 21:00 01/27/25 08:15 Pantoprazole Inj 40 Mg Vial IV 02/25/25 20:59 40 mg BID ANIL Administration Pharmacy Consult 1 each 01/25/25 23:31 Pharmacy To Consult Pneumovacc XX 02/24/25 23:30 PRN PRN CONSULT Sennosides 1 tab 01/26/25 09:00 01/27/25 08:21 Senna Tablet PO 02/25/25 08:59 Not Given QDAY ANIL Protocol Valsartan 160 mg 01/26/25 09:00 01/27/25 08:21 Valsartan 80 Mg Tablet PO 02/25/25 08:59 Not Given QDAY ANIL Plan 64-year-old Apple-speaking female with past medical history of hypertension and hypothyroidism who presented to the ED on 01/25/[address] Carter for an evaluation of recurrent epigastric abdominal pain starting 10 days ago, referred to the ED by Dr. Carter. Patient was admitted for observation and further evaluation; status post laparoscopic cholecystectomy for cholelithiasis. #Recurrent severe abdominal pain #Cholelithiasis without acute cholecystitis, status post lap smitha Patient presents with recurrent episodes of epigastric abdominal pain prompting repeated ED visits. Gallbladder US showed cholelithiasis, negative for cholecystitis, common bile duct 0.5 cm, and fatty liver. Clinical history is likely consistent with gallstone attacks without acute cholecystitis. Other differentials include GERD, peptic ulcer disease, gastric outlet obstruction, esophageal ulcers or strictures. Discussed with Dr. Carter, patient is to be admitted for further GI workup to first investigate for possible peptic ulcer disease and possible surgical consideration following. Dr. Carter completed EGD and colonoscopy which showed gastritis and esophagitis status post biopsies and pathology review General surgery, Dr. Mathews completed laparoscopic cholecystectomy without any acute complications Plan: Clear liquid diet advance as tolerated to PUD diet Pantoprazole 40 mg twice daily Acetaminophen as needed for fever or pain Zofran as needed for nausea #Normocytic anemia, likely iron deficiency anemia Labs showed Hgb 10.9, Hct 31.0, MCV 83, Iron 42, TIBC 340, Iron sat 12%, Unsat binding 298. Mild iron deficiency. Denies blood in stool or vomit. No clinical signs of active bleeding. Ferritin within normal limits Plan: Vitamin B12 and folate pending Follow-up outpatient with PCP for anemia workup and management with possible hematology referral #History of hypothyroidism Patient on home levothyroxine 50 mcg daily TSH of 2.54 Plan: Continue home medication #History of hypertension Patient on home amlodipine 10 mg p.o. daily and valsartan hydrochlorothiazide 160-25 mg daily Plan: Continue home medications Hospital Management: Lines: PIV Diet: Clear liquid, advancing as tolerated to PUD diet Bowel: Senna GI prophylaxis: Pantoprazole 40 mg PO daily DVT prophylaxis: Lovenox 40 mg subQ Code: Full Patient seen and examined with attending Dr. Garcia and senior resident Dr. James Alexander, PGY-1 -- ATTESTATION: I saw and examined the patient this morning, and I agree with current management stated by the resident. Will continue to monitor patient during their stay. Disclaimer: Despite multiple revisions, due to the dictation software being used, the document bellow may not be free of grammatical errors including phonetic/typographic errors. However, this does not deter from our commitment to providing health care in the patient's best interest in mind. Dr. Frank Ramirez, PGY-3 Attending Provider Attestation/Addendum I attest that I was physically present for the evaluation, physical examination, lab and imaging review of the patient with the residents. I discussed the case with the residents and agree with the findings and plans of care as documented above. At bedside today, patient states she is feeling well and does not have any new complaints. Denies any abdominal pain currently. Patient underwent EGD with GI, was found to have esophageal ulcer and esophagitis. Started on Protonix IV twice daily. Hemoglobin remained stable at 10.5. Surgery consult was recommended. Patient underwent cholecystectomy with general surgery. Started on clear liquid diet following surgery, we will advance her diet as tolerated, plan for discharge tomorrow if continues to be stable. Chastity Garcia MD
[2025-01-27] MEDS: HYDROcodone/APAP 5/325 TABLET 1 TAB PO ×2 (15:29→23:29)
--- NOTE | 2025-01-27 15:47 | ESPR_ITS ---
Documentation for date of: 01/27/25 Subjective Subjective Interval history: Stones in the neck of the gallbladder requiring surgical intervention Doing well postoperatively Exam Vital Signs Temp Pulse Resp BP Pulse Ox O2 Del Method O2 Flow Rate 97.2 F 73 18 141/77 H 95 Room Air 3 01/27/25 12:15 01/27/25 12:15 01/27/25 12:15 01/27/25 12:15 01/27/25 12:15 01/27/25 12:15 01/26/25 15:39 Objective Labs 01/27/25 04:34 01/27/25 04:34 Labs: Laboratory Results - last 24 hr 01/27/25 04:34 WBC 7.5 RBC 3.57 L Hgb 10.5 L Hct 29.7 L MCV 83 MCH 29.4 MCHC 35.4 RDW Std Deviation 39.8 Plt Count 434 Neut % (Auto) 52 Lymph % (Auto) 33 [place] % (Auto) 10 Eos % (Auto) 5 Baso % (Auto) 1 Neut # (Auto) 3.9 Lymph # (Auto) 2.5 [place] # (Auto) 0.7 Eos # (Auto) 0.4 Baso # (Auto) 0.0 Immature Gran # (Auto) 0.03 H Absolute Nucleated RBC 0.00 Immature Gran % 0 Nucleated RBC % 0 Sodium 137 Potassium 3.6 Chloride 103 Carbon Dioxide 25.4 Anion Gap 9 BUN 11 Creatinine 0.8 Estim Creat Clear Calc 61.1 eGFR > 60 BUN/Creatinine Ratio 14 Glucose 90 Calculated Osmolality 273 L Calcium 8.9 Corrected Calcium 9.0 Total Bilirubin 0.6 AST 32 ALT 55 H Alkaline Phosphatase 94 Total Protein 6.4 Albumin 3.9 D Globulin 2.5 Albumin/Globulin Ratio 1.6 Impressions Impression: # Stones in the neck of the gallbladder status post laparoscopic cholecystectomy Advance diet as tolerated Assessment & Plan A&P Narrative # Cholelithiasis history consistent with recurrent bouts of cholecystitis on a chronic basis # Transaminitis with mildly dilated common bile duct at 5 mm on ultrasound imaging report possibility of a CBD sludge or stone # Postprandial abdominal pain and bloating particular in the epigastric region other possibilities include peptic ulcer disease gastric outlet partial obstruction # No abdominal pain particular left mid quadrant left lower quadrant pain most likely due to stool impaction But patient being anemic with a hemoglobin 10.9 and hematocrit of 31.0 Plan Will arrange surgical consultation after further GI workup Fiberoptic esophagogastroduodenoscopy scheduled for tomorrow under intravenous moderate sedation consent obtained Clear liquid diet till midnight then n.p.o. Will also consider colonoscopy for further evaluation consent obtained Other medical problems include Essential hypertension Hyperlipidemia Hypothyroidism Chronic cough of uncertain etiology will have to look at the home medications before ordering any further workup Thank you once again for the opportunity to participate in care of this patient Time Spent With Patient Time: Total time spent is greater than 50% in coordination of care (as documented) at patient's floor/unit and/or counseling patient:
[2025-01-27] MEDS: KETOROLAC INJ 30 MG/ML VIAL 15 MG IVP (20:55)
[2025-01-27 21:33] LABS: Folate > 24.00 ng/mL (>5.38); Vitamin B12 902 pg/mL (211-911)
[2025-01-28] VITALS (7 sets, daily range): BP systolic 110–123; BP diastolic 55–60; PULSE 77–88; RESP 16–96; TEMP 36.7–36.9; O2SAT 92–93
[2025-01-28] MEDS: ACETAMINOPHEN 325 MG TABLET 650 MG PO (05:16)
[2025-01-28] MEDS: LEVOTHYROXINE SODIUM 25 MCG TABLET 50 MCG PO (05:17)
[2025-01-28 06:10] LABS: Basophils % (Auto) 0 % (0-2.5); Eosinophils % (Auto) 0 % (0-10); Hematocrit 28.8 % (36.0-46.0); Immature Granulocytes % (Auto) 1 % (0-0); Immature Granulocytes Auto 0.07 Thou/mm3 (0.00-0.00); Lymphocytes # (Auto) 2.3 Thou/mm3 (1.0-4.8); Lymphocytes % (Auto) 16 % (10-50); Mean Corpuscular HGB Conc 34.7 g/dl (31.0-37.0); Mean Corpuscular Hemoglobin 29.6 pg (25.0-35.0); Mean Corpuscular Volume 85 fL (80-100); Monocytes # (Auto) 0.8 Thou/mm3 (0.0-0.8); Monocytes % (Auto) 6 % (0-12); Neutrophils # (Auto) 11.5 Thou/mm3 (1.8-7.7); Neutrophils % (Auto) 78 % (37-80); Nucleated Red Blood Cell % 0 /100 WBC (0); Platelet Count 357 Thou/mm3 (140-440); RDW Standard Deviation 40.3 fL (36.4-46.3); Red Blood Count 3.38 Miln/mm3 (4.00-5.20); White Blood Count 14.8 Thou/mm3 (3.6-11.0)
[2025-01-28 06:32] LABS: Alanine Aminotransferase 95 U/L (10-49); Albumin, Serum 3.6 gm/dL (3.4-4.8); Albumin/Globulin Ratio 1.4 (1.2-2.2); Alkaline Phosphatase 74 U/L (46-116); Anion Gap 10 (7-16); Aspartate Amino Transferase 70 U/L (0-34); BUN/Creatinine Ratio 13 Ratio (12-20); Bilirubin,Total 0.7 mg/dL (0.3-1.2); Blood Urea Nitrogen 8 mg/dL (9-23); Calcium 9.1 mg/dL (8.3-10.6); Calcium (Corrected) 9.4 mg/dL (8.5-10.1); Carbon Dioxide 25.4 mMol/L (20.0-31.0); Chloride 100 mMol/L (98-107); Creatinine (Component) 0.6 mg/dL (0.6-1.3); Estimated Creatinine Clearance 81.5 mL/min (>60); Globulin 2.6 gm/dL (2.3-3.5); Glucose 105 mg/dL (74-106); Osmolality,Calculated 268 (275-295); Potassium 3.5 mMol/L (3.4-5.1); Sodium 135 mMol/L (136-145); Total Protein 6.2 gm/dL (5.7-8.2); eGFR > 60 See Note
[2025-01-28] MEDS: ENOXAPARIN SOD INJ 40 MG/0.4 ML SYRINGE SC (08:10)
[2025-01-28] MEDS: SENNA TABLET 1 TAB PO (08:11)
[2025-01-28] MEDS: hydroCHLOROthiazide 12.5 MG CAPSULE 25 MG PO (08:11)
[2025-01-28] MEDS: amLODIPine BESYLATE 5 MG TABLET 10 MG PO (08:11)
[2025-01-28] MEDS: PANTOPRAZOLE INJ 40 MG VIAL IV (08:11)
[2025-01-28] MEDS: VALSARTAN 80 MG TABLET 160 MG PO (08:12)
[2025-01-28] MEDS: HYDROcodone/APAP 5/325 TABLET 1 TAB PO (08:15)
--- NOTE | 2025-01-28 11:28 | PC.SS ---
Follow up note: Advance diet and d/c home today.
--- NOTE | 2025-01-28 12:04 | PD.IMPROG ---
Documentation for date of: 01/28/25 Subjective Subjective Interval history: Patient evaluated Case discussed with the certified surgical first assistant Okay to discharge patient home to be followed as an outpatient Exam Vital Signs Temp Pulse Resp BP Pulse Ox O2 Del Method O2 Flow Rate 98.0 F 84 18 112/60 92 L Room Air 3 01/28/25 07:55 01/28/25 08:28 01/28/25 08:28 01/28/25 08:12 01/28/25 07:55 01/28/25 07:55 01/26/25 15:39 Objective Labs 01/28/25 04:20 01/28/25 04:20 Labs: Laboratory Results - last 24 hr 01/25/25 01/28/25 12:52 04:20 WBC 14.8 H D RBC 3.38 L Hgb 10.0 L Hct 28.8 L MCV 85 MCH 29.6 MCHC 34.7 RDW Std Deviation 40.3 Plt Count 357 D Neut % (Auto) 78 Lymph % (Auto) 16 [place] % (Auto) 6 Eos % (Auto) 0 Baso % (Auto) 0 Neut # (Auto) 11.5 H Lymph # (Auto) 2.3 [place] # (Auto) 0.8 Eos # (Auto) 0.0 Baso # (Auto) 0.0 Immature Gran # (Auto) 0.07 H Absolute Nucleated RBC 0.00 Immature Gran % 1 H Nucleated RBC % 0 Sodium 135 L Potassium 3.5 Chloride 100 Carbon Dioxide 25.4 Anion Gap 10 BUN 8 L Creatinine 0.6 Estim Creat Clear Calc 81.5 eGFR > 60 BUN/Creatinine Ratio 13 Glucose 105 Calculated Osmolality 268 L Calcium 9.1 Corrected Calcium 9.4 Total Bilirubin 0.7 AST 70 H ALT 95 H Alkaline Phosphatase 74 D Total Protein 6.2 Albumin 3.6 Globulin 2.6 Albumin/Globulin Ratio 1.4 Vitamin B12 902 Folate > 24.00 Impressions Impression: Status post laparoscopic cholecystectomy for symptomatic cholelithiasis in the neck of the gallbladder causing biliary colic Okay to discharge patient home to be followed as an outpatient Assessment & Plan A&P Narrative # Cholelithiasis history consistent with recurrent bouts of cholecystitis on a chronic basis # Transaminitis with mildly dilated common bile duct at 5 mm on ultrasound imaging report possibility of a CBD sludge or stone # Postprandial abdominal pain and bloating particular in the epigastric region other possibilities include peptic ulcer disease gastric outlet partial obstruction # No abdominal pain particular left mid quadrant left lower quadrant pain most likely due to stool impaction But patient being anemic with a hemoglobin 10.9 and hematocrit of 31.0 Plan Will arrange surgical consultation after further GI workup Fiberoptic esophagogastroduodenoscopy scheduled for tomorrow under intravenous moderate sedation consent obtained Clear liquid diet till midnight then n.p.o. Will also consider colonoscopy for further evaluation consent obtained Other medical problems include Essential hypertension Hyperlipidemia Hypothyroidism Chronic cough of uncertain etiology will have to look at the home medications before ordering any further workup Thank you once again for the opportunity to participate in care of this patient Time Spent With Patient Time: Total time spent is greater than 50% in coordination of care (as documented) at patient's floor/unit and/or counseling patient:
--- NOTE | 2025-01-28 18:16 | ESDS_ITS ---
<Statement entered by Mario Alberto Matos MD - 01/29/25 15:57> I have examined the patient, reviewed labs and imaging findings, discussed the case with the resident(s), and reviewed entered orders. I agree with the plan of care as outlined in this note, with these additional summaries/recommendations: Patient tolerating diet well. Passing gas. Cleared for discharge to home with pain meds and advised to followup with PCP within 1-2 weeks. Mario Alberto Matos MD Planned Discharge Date 01/28/25 DS: Providers Provider Date of admission: 01/25/25 18:31 Primary care physician: Nicolás Diaz MD Admitting Provider: Chastity Garcia MD Attending Provider on Admission: Mario Alberto Matos MD Consults: 01/25/25 17:56 Consult to Gastroenterology Stat Comment: Abdominal pain Consulting Provider: Sun Carter 01/25/25 23:44 Referral Respiratory Therapy Routine Comment: 01/26/25 17:48 Consult to General Surgery Routine Comment: Consulting Provider: Radha Gutierrez 01/28/25 10:07 Referral Physical Therapy Stat Comment: Physician Instructions: Attending Provider on DC: Mario Alberto Matos MD Discharging Provider: Shawna Jj MD DS: Diagnosis Problem List Completed Was Problem List Reviewed/Reconciled?: Yes Hospital Course Hospital Course Hospital course: Reason for hospitalization: Recurrent abdominal pain, cholelithiasis, likely gallbladder attacks. Status post cholecystectomy. Patient is a 64-year-old Apple-speaking female with past medical history of hypertension and hypothyroidism who presented to the ED on 01/25/[address] Carter for an evaluation of intermittent epigastric abdominal pain starting 10 days prior, due to recurrent ED visits, 3 times to [facility] for the same prob sejal. Patient was admitted for further GI workup and cholecystectomy. Gallbladder US showed cholelithiasis, negative for cholecystitis, common bile duct 0.5 cm, and fatty liver. Abdomen/pelvis CT with contrast showed no abnormal findings. Clinical history was likely consistent with gallstone attacks without acute cholecystitis. Due to uncertain etiology of abdominal pain, GI workup included EGD which showed esophagitis, gastritis, and esophageal ulcers, and biopsies were taken. Colonoscopy completed showed hemorrhoids but otherwise normal mucosa. Patient had laparoscopic cholecystectomy completed by Dr. Mathews on 01/27/2025 which showed non-inflammed gallbladder with tiny pigmented stones in the gallbladder neck. Patient improved clinically post-procedures and was stable for discharge home, instructed to follow up with GI for biopsy results. Discharge Recommendations: -Please take [place] 5-325mg as needed every 8 hours for severe (7-10/10) abdominal pain -Follow up with Dr. Carter in 2-3 weeks. Call his office for appointment. -Follow up with PCP within 1 week of discharge -Continue rest of medications as previously prescribed -Return to the ED or call EMS if symptoms return and/or worsen. Hospital Diagnoses: #Recurrent severe abdominal pain #Cholelithiasis without acute cholecystitis #Normocytic anemia #History of hypothyroidism #History of hypertension #Mild LFT elevation #Constipation Patient plan of care was discussed with the attending physician, Dr. Matos. Shawna Jj, PGY-2 Time Spent with Patient Time attestation: Total time spent providing and/or coordinating discharge services: Time spent: Greater than 30 minutes Exam Vital Signs Temp Pulse Resp BP Pulse Ox O2 Del Method O2 Flow Rate 98.1 F 88 18 110/57 L 93 L Room Air 3 01/28/25 12:01/28/25 12:01/28/25 12:01/28/25 12:01/28/25 12:01/28/25 12:01/26/25 15:39 Narrative Exam Physical Exam: Constitutional: Well nourished and in no acute distress CVS: RRR, S1 and S2 present, no murmurs, rubs or gallops . RESP: CTAB, no SOB, no rales, rhonchi or wheezing. No respiratory Distress GI: Normal BS, Nontender/Nondistended. MSK: Full range of motion, No trauma or deformities or masses. Skin: Warm to touch, Dry. No rashes or lesions. No hematomas Neuro: supervisor soakers II-XII grossly intact. Sensation grossly intact. Psych: (AAO) x3 . Appropriate mood and affect. Discharge Plan Plan Patient Disposition: HOME (Self Care) Patient condition on transfer: Stable Care Plan Goals: Discharge Recommendations: -Please take [place] 5-325mg as needed every 8 hours for severe (7-10/10) abdominal pain -Follow up with PCP within 1 week of discharge -Continue rest of medications as previously prescribed -Return to the ED or call EMS if symptoms return and/or worsen. Follow up with Dr Carter in 2-3 weeks. Call his office for appointment. Prescriptions/Referrals Prescriptions/Med Rec: New hydrocodone-acetaminophen 5-325 mg tablet 1 tab PO Q8H MDD 15mg hydrocodone PRN (Reason: pain) Qty: 7 0RF Continued amlodipine 10 mg tablet 10 mg PO QDAY valsartan-hydrochlorothiazide 160-25 mg tablet 1 tab PO QDAY levothyroxine 50 mcg tablet 50 mcg PO QDAY Rx Instructions: on an empty stomach Referrals: Nicolás Diaz MD [Primary Care Provider] - Sun Carter MD [Physician] - Radha Gutierrez MD [Physician] - Patient/Caregiver Discharge Instructions Discharge Activity: activity as tolerated Education Materials: Esophageal Ulcer, Cholecystectomy, Cholecystectomy Laparoscopic Dc, Preventing Surgical Site Infections Print Language: Persian Activity Restrictions/Additional Instructions: Regular diet Remove Tegaderms today and may shower Leave the incision open Follow-up in my office on Tuesday, 04 February. Take pain medication as prescribed Call my office at for an appointment time. My office address is [facility]. [place] [address]. 8 Stand Alone Forms: [place] Award Info., Patient Portal Info Letter, Work/Release Restrictions Discharge Order Discharge Orders: Discharge (Routine); Ordered 01/28/25 Ordered By: Shawna Jj Quality Discharge Quality Measures VTE prophylaxis
== END 2025-01-28 15:19 | disposition home or self-care (01) ==
LOC: SERX 18:10 → SERHOLD 19:39 → S3NX 01-26 14:06 → SERHOLD 01-28 08:15 → S3NX 01-28 08:15
PROVIDERS: Nurse Practitioner Family; Specialist; Student in an Organized Health Care Education/Training Program; Surgery; Admitting Provider Student in an Organized Health Care Education/Training Program; Emergency Provider Emergency Medicine; PCP Family Medicine; Visit Provider Student in an Organized Health Care Education/Training Program
PROC: (CPT 43239; principal; 2025-01-26 14:30)
PROC: 0DJD8ZZ Inspection of Lower Intestinal Tract, Via Natural or Artificial Opening Endoscopic (ICD-10-PCS; CPT 45378; 2025-01-26 14:30)
PROC: 0FT44ZZ Resection of Gallbladder, Percutaneous Endoscopic Approach (ICD-10-PCS; CPT 47562; principal; 2025-01-27 09:30)
DX: K80.80 Other cholelithiasis without obstruction (principal); K64.9 Unspecified hemorrhoids; D64.9 Anemia, unspecified; E03.9 Hypothyroidism, unspecified; E78.00 Pure hypercholesterolemia, unspecified; I10 Essential (primary) hypertension; E61.1 Iron deficiency; K29.70 Gastritis, unspecified, without bleeding; K59.00 Constipation, unspecified; K76.0 Fatty (change of) liver, not elsewhere classified; Z01.810 Encounter for preprocedural cardiovascular examination
CPT/HCPCS: 45378; 47562; 36415; 74177; 76705; 80053; 81001; 82150; 82248; 82270; 82607; 82728; 82746; 83540; 83550; 83690; 84443; 85025; 85610; 85730; 93005; 96372; 96374; 99285; A4217; A4649; G0378; J1200; J1650; J1885; J2175; J2250; J2405; J2470; J2704; J3010; J3490; Q9967; A9270

== ENCOUNTER → 2025-04-11 | Outpatient (CLI) | payer OTHER, SELFPAY ==
--- NOTE | 2025-04-11 10:00 | XR_ITS ---
Examination: CT chest with intravenous contrast 2-D sagittal and coronal reconstructions Exam date and time: April 11, 2025 1138 hours INDICATIONS: Coughing 3 months CTDI:vol (mGy) 12.2 DLP: (mGycm) the Technique: Multiple axial sections of the thorax have been obtained. Sections have been obtained, 3 mm slice thickness. Mediastinal and lung density settings have been obtained. Intravenous contrast administered, 60 cc Isovue-370. 2-D sagittal, coronal images obtained. Low dose protocols were performed. One or more of the following dose reduction techniques were used; automated exposure control, adjustment of the mA and/or KV according to patient size, use of iterative reconstruction technique. Findings: No thoracic aortic aneurysm dilatation or dissection Pulmonary artery segments are not enlarged No pulmonary artery filling defects on this non-CTA study No pneumonia, pulmonary edema, pleural disease or pulmonary nodules Diffuse fatty infiltration throughout the liver Absent gallbladder No pancreatic or adrenal mass IMPRESSION: No mediastinal lymphadenopathy Negative for pulmonary artery emboli No pneumonia, pulmonary edema, pleural disease or pulmonary nodules
[2025-04-11 10:46] LABS: Alanine Aminotransferase 46 U/L (10-49); Albumin, Serum 4.4 gm/dL (3.4-4.8); Albumin/Globulin Ratio 1.8 (1.2-2.2); Alkaline Phosphatase 89 U/L (46-116); Anion Gap 11 (7-16); BUN/Creatinine Ratio 16 Ratio (12-20); Bilirubin,Total 0.6 mg/dL (0.3-1.2); Blood Urea Nitrogen 11 mg/dL (9-23); Calcium 9.2 mg/dL (8.3-10.6); Calcium (Corrected) 9.2 mg/dL (8.5-10.1); Carbon Dioxide 27.6 mMol/L (20.0-31.0); Chloride 99 mMol/L (98-107); Creatinine (Component) 0.7 mg/dL (0.6-1.3); Globulin 2.5 gm/dL (2.3-3.5); Glucose 99 mg/dL (74-106); Osmolality,Calculated 275 (275-295); Potassium 3.4 mMol/L (3.4-5.1); Sodium 138 mMol/L (136-145); Total Protein 6.9 gm/dL (5.7-8.2); eGFR > 60 See Note
== END | disposition home or self-care (01) ==
LOC: CCTX 09:39 → COPL 09:45
PROVIDERS: PCP Family Medicine; Referring Provider Specialist; Visit Provider Radiology Diagnostic Radiology
DX: R05.3 Chronic cough (principal); K29.00 Acute gastritis without bleeding
CPT/HCPCS: 36415; 71260; 80053; A4649; Q9967